=== PATIENT | male | born 1995 | race Caucasian/White ===

== ENCOUNTER 2021-09-25 11:55 | Emergency (ER) | payer SELFPAY ==
[2021-09-25 12:16] VITALS: BP 123/70; PULSE 73; TEMP 97.9; BMI 31.1
== END 2021-09-25 13:12 | disposition home or self-care (01) ==
LOC: JERFT 11:55
DX: R07.9 Chest pain, unspecified (principal)
CPT/HCPCS: 71046-TC-FY; 93005; 93010; 99284-25

== ENCOUNTER 2024-04-11 16:31 | Inpatient (IN) | payer SELFPAY ==
[2024-04-11] MEDS ORDERED: KETOROLAC TROMETHAMINE 30 MG/1 ML VIAL ONE (18:06)
[2024-04-11] MEDS ORDERED: ceFAZolin SODIUM 1 GM VIAL ONE (18:08)
[2024-04-11 18:13] LABS: BASO % 0.3 % (0-2.0); EOS % 0.5 % (0-4.5); HEMATOCRIT 42.2 % (35.4-49); HEMOGLOBIN 14.3 GM/dL (11.7-16.9); LYMPH % 10.6 % (8-40); MCH 27.6 pg (25.7-33.7); MCHC 33.9 g/dl (32.0-35.9); MEAN CELL VOLUME 81.4 fl (80-96); MEAN PLT VOLUME 7.7 fl (7.5-11.1); MONO % 8.6 % (3.8-10.2); PLATELET COUNT 247 10^3/uL (134-434); RBC 5.19 M/mm3 (4.00-5.60); RDW 13.1 % (11.9-15.9); WHITE BLOOD COUNT 13.1 K/mm3 (4.0-10.0)
[2024-04-11] MEDS ORDERED: SULFAMETHOXAZOLE/TRIMETHOPRIM 800MG/160MG D.S. TABLET ONE (18:16)
[2024-04-11 18:19] LABS: INR 1.06 (0.83-1.09); PROTHROMBIN TIME (PATIENT) 12.2 SEC (9.7-13.0)
[2024-04-11 18:22] LABS: ACTIVATED PTT 31.9 SECONDS (25.2-36.5)
[2024-04-11] MEDS: CEFAZOLIN 1 GM in DEXTROSE 5%-WATER - 50 ML IVPB ONE (18:24)
[2024-04-11] MEDS: SULFAMETHOXAZOLE/TRIMETHOPRIM 800MG/160MG D.S. TABLET PO ONE (18:24)
[2024-04-11] MEDS: KETOROLAC TROMETHAMINE 30 MG/1 ML VIAL IVPUSH ONE (18:24)
[2024-04-11] MEDS: SULFAMETHOXAZOLE 80 MG/TRIMETHOPRIM 16 MG/ML VIAL IVPB SCH (18:28)
[2024-04-11] MEDS: KETOROLAC TROMETHAMINE 30 MG/1 ML VIAL IM ONE (18:28)
[2024-04-11 19:09] LABS: POTASSIUM 4.2 mmol/L (3.5-5.1)
[2024-04-11 19:11] LABS: ALBUMIN 3.5 g/dl (3.4-5.0); BLOOD UREA NITROGEN 10.9 mg/dL (7-18)
[2024-04-11 19:15] LABS: CREATININE 0.8 mg/dL (0.55-1.3)
[2024-04-11 19:16] LABS: BILIRUBIN,TOTAL 0.4 mg/dL (0.2-1); TOT PROT 7.2 g/dl (6.4-8.2)
[2024-04-11] MEDS ORDERED: morphine SULFATE 4 MG/ML VIAL ONE (20:26)
[2024-04-11] MEDS: morphine SULFATE 4 MG/ML VIAL IVPUSH ONE (20:37)
[2024-04-12] MEDS: PIPERACILLIN/TAZOB 3.375 GM 3.375 GM in DEXTROSE 5%-WATER - 50 ML IVPB SCH ×3 (02:30→17:20)
[2024-04-12 03:30] VITALS: BMI 36.6
[2024-04-12] MEDS: ENOXAPARIN NA (PORCINE) 40 MG/0.4 ML DISP.SYRIN SQ SCH (09:44)
[2024-04-12] MEDS: SODIUM CHLORIDE 1,000 ML IV SCH (09:45)
[2024-04-12 09:50] LABS: ALBUMIN 3.3 g/dl (3.4-5.0)
[2024-04-12 09:53] LABS: BLOOD UREA NITROGEN 10.4 mg/dL (7-18); CALCIUM 8.6 mg/dL (8.5-10.1); MAGNESIUM 2.4 mg/dL (1.8-2.4)
[2024-04-12 09:56] LABS: BILIRUBIN,TOTAL 0.6 mg/dL (0.2-1); CREATININE 0.8 mg/dL (0.55-1.3); PHOSPHOROUS 3.4 mg/dL (2.5-4.9)
[2024-04-12 10:02] LABS: BASO % 0.2 % (0-2.0); EOS % 0.4 % (0-4.5); HEMOGLOBIN 14.3 GM/dL (11.7-16.9); LYMPH % 9.2 % (8-40); MCH 28.3 pg (25.7-33.7); MCHC 34.8 g/dl (32.0-35.9); MEAN CELL VOLUME 81.4 fl (80-96); MEAN PLT VOLUME 8.1 fl (7.5-11.1); MONO % 8.7 % (3.8-10.2); NEUT % 81.5 % (42.8-82.8); PLATELET COUNT 231 10^3/uL (134-434); RBC 5.04 M/mm3 (4.00-5.60); RDW 13.2 % (11.9-15.9)
[2024-04-12] MEDS ORDERED: MIDAZOLAM HCL 2 MG/2 ML SINGLE DOSE VIAL ONE (12:28)
[2024-04-12] MEDS ORDERED: ROCURONIUM BROMIDE 50 MG/5 ML SYRINGE ONE (12:30)
[2024-04-12] MEDS ORDERED: SEVOFLURANE 250 ML BTL ONE (13:41)
[2024-04-12] MEDS ORDERED: oxyCODONE HCL 5 MG TABLET PO PRN (14:13)
[2024-04-12] MEDS ORDERED: ONDANSETRON 4 MG/2 ML VIAL IVPUSH PRN ×2 (14:13→14:45)
[2024-04-12] MEDS: LACTATED RINGERS SOLUTION 1,000 ML IV SCH ×2 (16:01→16:02)
[2024-04-12] MEDS: oxyCODONE HCL 5 MG TABLET PO PRN (17:33)
[2024-04-12] MEDS ORDERED: PIPERACILLIN/TAZOB 3.375 GM 3.375 GM in DEXTROSE 5%-WATER - 50 ML IVPB SCH (18:00)
[2024-04-13 08:10] LABS: BASO % 0.3 % (0-2.0); EOS % 1.2 % (0-4.5); HEMOGLOBIN 14.8 GM/dL (11.7-16.9); LYMPH % 9.1 % (8-40); MCH 27.6 pg (25.7-33.7); MCHC 33.7 g/dl (32.0-35.9); MEAN PLT VOLUME 8.1 fl (7.5-11.1); MONO % 9.5 % (3.8-10.2); NEUT % 79.9 % (42.8-82.8); PLATELET COUNT 254 10^3/uL (134-434); RBC 5.36 M/mm3 (4.00-5.60); WHITE BLOOD COUNT 10.6 K/mm3 (4.0-10.0)
[2024-04-13 08:30] LABS: POTASSIUM 4.1 mmol/L (3.5-5.1)
[2024-04-13 08:32] LABS: BLOOD UREA NITROGEN 8.2 mg/dL (7-18)
[2024-04-13 08:35] LABS: CREATININE 0.8 mg/dL (0.55-1.3)
[2024-04-13] MEDS: ENOXAPARIN NA (PORCINE) 40 MG/0.4 ML DISP.SYRIN SQ SCH (09:03)
[2024-04-13 13:20] VITALS: RESP 17
[2024-04-13 14:18] VITALS: BP 111/62; PULSE 62; TEMP 98.5
== END 2024-04-13 15:45 | disposition home or self-care (01) | DRG 223 ==
LOC: JER 16:31 → JERBED 20:15 → J7W 04-12 01:07 → OBSVTOIN 04-13 08:31
PROVIDERS: ADMIT Internal Medicine; ATTEND Internal Medicine
PROC: 0D9P0ZZ Drainage of Rectum, Open Approach (ICD-10-PCS; principal; 2024-04-12 17:15)
DX: K61.1 Rectal abscess (principal); K66.9 Disorder of peritoneum, unspecified; Z68.36 Body mass index [BMI] 36.0-36.9, adult
CPT/HCPCS: 36415; 72193-TC; 80048; 80053; 83735; 84100; 85025; 85610; 85730; 86140; 86850; 86900; 86901; 87070; 87076; 87205; 94760; 99285-25; G0378; Q9967